=== PATIENT | female | born 1995 | race Caucasian/White ===

== ENCOUNTER 2022-01-03 09:58 | Emergency (ER) | payer SELFPAY ==
[2022-01-03 10:06] VITALS: BP 126/75
[2022-01-03] MEDS ORDERED: HYDROcod/ACETAM 5/325 MG TABLET PO STA (11:01)
[2022-01-03] MEDS ORDERED: CLINDAMYCIN 150 MG CAPSULE PO STA (11:01)
--- NOTE | 2022-01-03 11:04 | ED Physician Documentation ---
PD HPI HEENT - Stated complaint Stated Complaint: TOOTH INFECTION - Chief complaint Chief Complaint: Heent - History obtained from History obtained from: Patient - Additional information Additional information: The patient complains of ongoing dental pain in her left maxillary molar #1. She states she was seen by dentist in [place] who did a temporary fix but told her she would need a root canal. She states that they just moved here from [place] a week and a half ago and she was never able to get the root canal done before they left. Patient states she is just been having a lot of pain in the area and feels as though there is a "hole" in her tooth. Mild facial swelling. Patient states she had some chills yesterday. No difficulty speaking or swallowing. No drooling. No other complaints at this time. Review of Systems Ten Systems: 10 systems reviewed and negative Constitutional: reports: Reviewed and negative Eyes: reports: Reviewed and negative Ears: reports: Reviewed and negative Nose: reports: Reviewed and negative Throat: reports: Dental pain / toothache Cardiac: reports: Reviewed and negative Respiratory: reports: Reviewed and negative GI: reports: Reviewed and negative : reports: Reviewed and negative Skin: reports: Reviewed and negative Musculoskeletal: reports: Reviewed and negative Neurologic: reports: Reviewed and negative Psychiatric: reports: Reviewed and negative Endocrine: reports: Reviewed and negative Immunocompromised: reports: Reviewed and negative PD PAST MEDICAL HISTORY - Present Medications Home Medications: Ambulatory Orders Medication Instructions Recorded Confirmed HYDROcod/ACETAM 5/325 [[place] 5/325] 1 - 2 tablet PO Q6H PRN #14 tablet 01/03/22 clindamycin HCL [Clindamycin HCl] 300 mg PO Q8HR #21 cap 01/03/22 - Allergies Allergies/Adverse Reactions: Allergies Allergy/AdvReac Type Severity Reaction Status Date / Time Penicillins Allergy Hives Verified 01/03/22 10:03 PD ED PE NORMAL - Vitals Vital signs reviewed: Yes - General General: Alert and oriented X 3, No acute distress, Well developed/nourished - HEENT HEENT: Atraumatic, PERRL, EOMI, Moist mucous membranes, Other (No gingival or buccal edema. No tenderness or swelling of the palate. No drainage. Temporary filling noted in first left maxillary molar. No mass. Slight swelling of left cheek versus right.) - Neck Neck: Supple, no meningeal sign - Respiratory Respiratory: No respiratory distress - Derm Derm: Warm and dry - Extremities Extremities: No deformity - Neuro Neuro: Alert and oriented X 3 - Psych Psych: Normal mood, Normal affect Results - Vitals Vitals: Vital Signs - 24 hr 01/03/22 10:04 Temperature 37.1 C Heart Rate 55 L Respiratory 19 Rate Blood Pressure 126/75 O2 Saturation 99 Oxygen O2 Source Room air PD MEDICAL DECISION MAKING - ED course Complexity details: considered differential, d/w patient ED course: Patient was started on antibiotics and analgesics here. I have given her prescription for the same. We have discussed the need for dental follow-up And I have given her some follow-up options locally. We have discussed the usual indications for return. Departure - Departure Disposition: 01 Home, Self Care Clinical Impression: Pain, dental Condition: Stable Instructions: ED Tooth Pain Prescriptions: clindamycin HCL [Clindamycin HCl] 300 mg PO Q8HR #21 cap HYDROcod/ACETAM 5/325 [[place] 5/325] 1 - 2 tablet PO Q6H PRN #14 tablet PRN Reason: Pain Comments: Your prescription has been electronically transmitted to [facility] pharmacy in [place]. You may call [facility] at [phone]; another option in [place] would be [facility], at [phone]. Please take all of the antibiotics, as directed, until gone. You may use the pain medication prescribed, along with ibuprofen, as needed. Discharge Date/Time: 01/03/22 11:11
== END 2022-01-03 11:11 | disposition home or self-care (01) ==
LOC: ED 09:58
DX: K08.89 Other specified disorders of teeth and supporting structures (principal)
CPT/HCPCS: 99282; A9270

== ENCOUNTER 2024-03-21 12:26 | Outpatient (CLI) | payer OTHER ==
--- NOTE | 2024-03-21 15:08 | Ultrasound Report ---
PROCEDURE: Pelvic w/Transvaginal INDICATIONS: RLQ ABD PAIN TECHNIQUE: Real-time scanning was performed of the pelvic organs, with image documentation. Additional endovagi nal scanning was necessary due to incomplete visualization of the adnexal and endometrial structures by transabdominal scanning. COMPARISON: None. FINDINGS: Uterus: Uterus is retroverted and normal in size at 6.5 x 3.1 x 3.8 cm. The myometrium is homogeneo us. The endometrium measures 4 mm in combined thickness. Ovaries: The ovaries were identified only on the transabdominal scan. The right ovary measures 2.4 x 1.7 x 1.7 cm, with a calculated ovarian volume of 3.5 cc. The left ovary measures 2.6 x 1.5 x 2.0 cm , with a calculated ovarian volume of 4.0 cc. The ovaries have a normal sonographic appearance. Les s than 12 follicles can be seen in each ovary. No adnexal masses are seen. No cystic lesions measuri ng greater than 3 cm. Other: No pathologic free abdominal or pelvic fluid. IMPRESSION: No sonographic abnormality the uterus or ovaries. Reviewed by: Todd Hart MD on 03/21/2024 3:07 PM PDT Approved by: Todd Hart MD on 03/21/2024 3:07 PM PDT Station ID: [id number]
== END 2024-03-21 12:27 | disposition home or self-care (01) ==
LOC: DI 12:26
PROVIDERS: ATTEND Physician Assistant
DX: R10.31 Right lower quadrant pain (principal)